=== PATIENT | female | born 1960 | race Caucasian/White ===

== ENCOUNTER 2019-07-04 08:05 | Day surgery (SDC) | payer BC, OTHER ==
[~2019-07-04] VITALS: Ht 177.8 cm; Wt 79.5 kg
[2019-07-04 08:18] VITALS: BP 105/72; PULSE 65; TEMP 97.1
[2019-07-04] MEDS ORDERED: FOSAMAX 70MG TA70 MG PO (08:31)
[2019-07-04] MEDS ORDERED: CENTRUM SILVER1 CTB PO (08:32)
[2019-07-04] MEDS ORDERED: ARMOUR THYROID120 MG PO (08:32)
[2019-07-04] MEDS ORDERED: NP THYROID15 MG PO (08:32)
[2019-07-04] MEDS ORDERED: NEXIUM 20MG20 MG PO (08:33)
[2019-07-04 11:20] VITALS: BP 114/75; PULSE 68; TEMP 97.6
--- NOTE | 2019-07-04 11:20 | NUR ---
Patient brought back to [facility] via cart. Ambulated to chair without difficulty. Alert and oriented. Patient denies pain or nausea. Placed on monitors, vital signs stable. Requesting muffin, apple sauce, and juice. at bedside. Yancy RN at bedside to give report. Will continue to [facility].
[2019-07-04 11:35] VITALS: BP 107/84; PULSE 64
--- NOTE | 2019-07-04 11:35 | NUR ---
Patient tolerating food and drink without difficulty. Vital signs stable. Dr. Glover at bedside to explain results. Will continue to monitor.
[2019-07-04 11:50] VITALS: BP 130/75; PULSE 56
--- NOTE | 2019-07-04 11:50 | NUR ---
Patient has sudden onset of nausea. Episode of vommiting noted. Zofran given per orders. Vitals remains stable. Will continue to monitor.
[2019-07-04 12:05] VITALS: BP 109/65; PULSE 57
--- NOTE | 2019-07-04 12:05 | NUR ---
Patient states she is feeling much better and ready to go home. IV removed. Discharge instructions reviewed with patient and . All questions answered. Pt to get dressed at this time.
--- NOTE | 2019-07-04 12:15 | NUR ---
Patient brought down to lobby via wheel chair. To be driven home by .
== END 2019-07-04 12:15 | disposition home or self-care (01) ==
LOC: SDCO 08:05
DX: K29.70 Gastritis, unspecified, without bleeding (principal); K21.9 Gastro-esophageal reflux disease without esophagitis; K44.9 Diaphragmatic hernia without obstruction or gangrene; K29.60 Other gastritis without bleeding; K64.8 Other hemorrhoids; D72.820 Lymphocytosis (symptomatic); R19.7 Diarrhea, unspecified
CPT/HCPCS: J2250; J2405; J3010; J7030